=== PATIENT | male | born 1995 | race Caucasian/White ===

== ENCOUNTER 2017-10-08 18:09 | Inpatient (IN) | payer OTHER ==
[2017-10-08 18:37] VITALS: BMI 29.0
--- NOTE | 2017-10-08 20:21 | HP ---
CIWA Score - CIWA Score Nausea/Vomitin Muscle Tremors: 4-Moderate,w/Arms Extend Anxiety: 4-Mod. Anxious/Guarded Agitation: 1-Slight > Activity Paroxysmal Sweats: 3 Orientation: 0-Oriented Tacttile Disturbances: 0-None Auditory Disturbances: 0-None Visual Disturbances: 0-None Headache: 3-Moderate CIWA-Ar Total Score: 18 Admission ROS BHS - HPI Chief Complaint: Alcohol withdrawal symptoms Allergies/Adverse Reactions: Allergies Allergy/AdvReac Type Severity Reaction Status Date / Time No Known Allergies Allergy Verified 10/08/17 18:59 History of Present Illness: 22 years old male with a long history of alcohol dependence is admitted to detox. Patient reports that this is his first admission to detox and to [facility]. Patient reports past medical history of low back pain and depression. He reports suicide attempt in 2012 and denies suicidal ideation at this time. Exam Limitations: No Limitations - Ebola screening Have you traveled outside of the country in the last 21 days: No Have you had contact with anyone from an Ebola affected area: No Have you been sick,other than usual withdrawal symptoms: No Do you have a fever: No - Review of Systems Constitutional: Chills, Loss of Appetite, Malaise, Night Sweats, Changes in sleep EENT: reports: Sinus Pressure Respiratory: reports: No Symptoms reported Cardiac: reports: No Symptoms Reported GI: reports: Nausea, Poor Appetite, Poor Fluid Intake, Vomiting, Abdominal cramping : reports: No Symptoms Reported Musculoskeletal: reports: Back Pain, Muscle Pain, Muscle Weakness Integumentary: reports: Dryness, Flushing Neuro: reports: Tingling, Tremors Endocrine: reports: Increased Urine Hematology: reports: No Symptoms Reported Psychiatric: reports: Mood/Affect Appropiate, Orientated x3, Anxious Other Systems: Reviewed and Negative Patient History - Patient Medical History Hx Anemia: No Hx Asthma: No Hx Chronic Obstructive Pulmonary Disease (COPD): No Hx Cancer: No Hx Cardiac Disorders: No Hx Congestive Heart Failure: No Hx Hypertension: No Hx Hypercholesterolemia: No Hx Pacemaker: No HX Cerebrovascular Accident: No Hx Seizures: No Hx Diabetes: No Hx Gastrointestinal Disorders: No Hx Liver Disease: No Hx Genitourinary Disorders: No Hx Sexually Transmitted Disorders: No Hx Renal Disease (ESRD): No Hx Thyroid Disease: No Hx Human Immunodeficiency Virus (HIV): No Hx Hepatitis C: No Hx Depression: Yes Hx Suicide Attempt: No Hx Bipolar Disorder: No Hx Schizophrenia: No Other Medical History: LOW BACK PAIN - Patient Surgical History Past Surgical History: No Hx Neurologic Surgery: No Hx Cataract Extraction: No Hx Cardiac Surgery: No Hx Lung Surgery: No Hx Abdominal Surgery: No Hx Appendectomy: No Hx Cholecystectomy: No Hx Genitourinary Surgery: No Hx Section: No Hx Orthopedic Surgery: No Anesthesia Reaction: No - PPD History Previous Implant?: No Implanted On Prior [facility] Admission?: No PPD to be Administered?: Yes - Reproductive History Patient is a Female of Child Bearing Age (11 -55 yrs old): No (MALE) - Smoking Cessation Smoking history: Never smoked Have you smoked in the past 12 months: No Hx Chewing Tobacco Use: No Initiated information on smoking cessation: No - Substance & Tx. History Hx Alcohol Use: Yes Substance Use Type: None, Alcohol, Cocaine, Marijuana - Substances Abused Alcohol Route: Oral Frequency: 3-6 times per week Amount used: TEQUILLA- I LITER and BEER - 24 X 12 oz. Age of first use: 13 Date of Last Use: 10/07/17 Cocaine Route: Inhalation Frequency: 3-6 times per week Amount used: 3 GRAMS Age of first use: 14 Date of Last Use: 10/07/17 Marijuana/Hashish Route: Smoking Frequency: Daily Amount used: 28 GRAM WEEKLY Age of first use: 17 Date of Last Use: 10/04/17 Family Disease History - Family Disease History Family History: Denies Admission Physical Exam BHS - Vital Signs Vital Signs: Vital Signs - 24 hr 10/08/17 18:34 Temperature 97.7 F Pulse Rate 103 H Respiratory 18 Rate Blood Pressure 133/83 - Physical General Appearance: Yes: Moderate Distress, Tremorous, Irritable, Sweating, Anxious HEENTM: Yes: EOMI, Hearing grossly Normal, Normal ENT Inspection, Normocephalic , Normal Voice, IZA Respiratory: Yes: Lungs Clear, Normal Breath Sounds, No Respiratory Distress Neck: Yes: Supple Breast: Yes: Breast Exam Deferred Cardiology: Yes: Tachycardia Abdominal: Yes: Normal Bowel Sounds, Soft Genitourinary: Yes: Within Normal Limits Musculoskeletal: Yes: Back pain, Muscle Pain, Muscle weakness Extremities: Yes: Tremors Neurological: Yes: Fully Oriented, Alert, Normal Mood/Affect Integumentary: Yes: Within Normal Limits, Warm Lymphatic: Yes: Within Normal Limits - Diagnostic (1) Alcohol dependence with uncomplicated withdrawal Current Visit: Yes Status: Chronic (2) Low back pain Current Visit: Yes Status: Chronic (3) Depression Current Visit: Yes Status: Chronic Qualifiers: Major depression episode severity: unspecified (4) Cannabis dependence, uncomplicated Current Visit: Yes Status: Chronic (5) Cocaine dependence, uncomplicated Current Visit: Yes Status: Chronic Cleared for Admission [facility] - Detox or Rehab [facility] Level of Care: Medically Managed Detox Regimen/Protocol: Librium [facility] Breath Alcohol Content Breath Alcohol Content: 0 Urine Drug Screen - Results Drug Screen Negative: No Urine Drug Screen Results: THC-Marijuana, MARA-Cocaine
[2017-10-08] MEDS ORDERED: chlordiazePOXIDE HCL 25 MG CAPSULE PO PRN (20:41)
[2017-10-08] MEDS ORDERED: LOPERAMIDE HCL 2 MG CAPSULE PO PRN (20:41)
[2017-10-08] MEDS ORDERED: P-EPHED 60MG/TRIPROLIDI 2.5MG TABLET PO PRN (20:41)
[2017-10-08] MEDS ORDERED: MAGNESIUM HYDROX 2400MG/30ML ORAL SUSPENSION 30 ML CUP PO PRN (20:41)
[2017-10-08] MEDS ORDERED: MENTHOL/PHENOL 1 EACH UD MM PRN (20:41)
[2017-10-08] MEDS ORDERED: MAGNESIUM CITRATE 300 ML BOTTLE PO PRN (20:41)
[2017-10-08] MEDS ORDERED: MAG HYDROX/AL HYDROX/SIMETH 30 ML UNIT-DOSE CUP PO PRN (20:41)
[2017-10-08] MEDS ORDERED: guaiFENesin/D-METHORPHAN HB 10 ML UNIT-DOSE CUPS PO PRN (20:41)
[2017-10-08] MEDS: chlordiazePOXIDE HCL 25 MG CAPSULE PO SCH (22:23)
[2017-10-08] MEDS: THIAMINE HCL 100 MG TABLET (FP) PO SCH (22:23)
[2017-10-09] MEDS: chlordiazePOXIDE HCL 25 MG CAPSULE PO SCH ×4 (05:47→22:46)
--- NOTE | 2017-10-09 07:27 | CONSULT ---
[facility] Psychiatric Consult - Data Substance Abuse History: - Smoking Cessation. Smoking history: Never smoked. Have you smoked in the past 12 months: No. Hx Chewing Tobacco Use: No. Initiated information on smoking cessation: No. - Substance & Tx. History. Hx Alcohol Use: Yes. Substance Use Type: None, Alcohol, Cocaine, Marijuana. - Substances Abused. Alcohol. Route: Oral. Frequency: 3-6 times per week. Amount used: TEQUILLA- I LITER and BEER - 24 X 12 oz. Age of first use: 13. Date of Last Use: 10/07/17. Cocaine. Route: Inhalation. Frequency: 3-6 times per week. Amount used: 3 GRAMS. Age of first use: 14. Date of Last Use : 10/07/17. Marijuana/Hashish. Route: Smoking. Frequency: Daily. Amount used: 28 GRAM WEEKLY. Age of first use: 17. Date of Last Use: 10/04/17
--- NOTE | 2017-10-09 08:48 | CONSULT ---
[facility] Psychiatric Consult - Data Date of interview: 10/09/17 Admission source: [facility] Identifying data: This is 22 years old male,, living with family, employed, with no psychiatric hospitalization history, with a long history of alcohol dependence, Cocaine and Cannabis abuse as well, is admitted to detox. Patient reports that this is his first admission to detox and to [facility]. Substance Abuse History: - Smoking Cessation. Smoking history: Never smoked. Have you smoked in the past 12 months: No. Hx Chewing Tobacco Use: No. Initiated information on smoking cessation: No. - Substance & Tx. History. Hx Alcohol Use: Yes. Substance Use Type: None, Alcohol, Cocaine, Marijuana. - Substances Abused. Alcohol. Route: Oral. Frequency: 3-6 times per week. Amount used: TEQUILLA- I LITER and BEER - 24 X 12 oz. Age of first use: 13. Date of Last Use: 10/07/17. Cocaine. Route: Inhalation. Frequency: 3-6 times per week. Amount used: 3 GRAMS. Age of first use: 14. Date of Last Use : 10/07/17. Marijuana/Hashish. Route: Smoking. Frequency: Daily. Amount used: 28 GRAM WEEKLY. Age of first use: 17. Date of Last Use: 10/04/17 Medical History: Patient reports past medical history of low back pain. Psychiatric History: Patient reports history of depression, suicide attempt in 2012 and denies suicidal ideation since then and at this time. Reports no psychiatric medications taking prior to admission. Physical/Sexual Abuse/Trauma History: Denies Additional Comment: Observation. Detox Unit Care Protocol Mental Status Exam - Mental Status Exam Alert and Oriented to: Person Cognitive Function: Fair Patient Appearance: Unkempt Mood: Sad Affect: Flat Patient Behavior: Sedated Speech Pattern: Delayed Voice Loudness: Mildly Soft/Quiet Thought Process: Goal Oriented Thought Disorder: Being Controlled Hallucinations: Denies Suicidal Ideation: Denies Homicidal Ideation: Denies Insight/Judgement: Fair Sleep: Difficulty falling asleep Appetite: Fair Muscle strength/Tone: Mild Hypotonicity Gait/Station: Deferred Additional Comments: Observation. Detox Unit Care Protocol Psychiatric Findings - Problem List ([place] 1, 2,3) (1) Drug-induced mood disorder Status: Suspected (2) Alcohol dependence with uncomplicated withdrawal Status: Acute (3) Cannabis dependence, uncomplicated Status: Chronic (4) Cocaine dependence, uncomplicated Status: Chronic - Initial Treatment Plan Initial Treatment Plan: Observation. Detox Unit Care Protocol
[2017-10-09 10:13] LABS: HEMATOCRIT 43.6 % (35.4-49); HEMOGLOBIN 14.1 GM/dL (11.7-16.9); MCH 27.2 pg (25.7-33.7); MCHC 32.4 g/dl (32.0-35.9); MEAN CELL VOLUME 83.9 fl (80-96); MEAN PLT VOLUME 8.3 fl (7.5-11.1); PLATELET COUNT 219 K/MM3 (134-434); RDW 14.2 % (11.9-15.9); WHITE BLOOD COUNT 5.9 K/mm3 (4.0-10.0)
[2017-10-09 10:20] LABS: ALK PHOS 58 U/L (45-117); ANION GAP 8 (8-16); BILIRUBIN,TOTAL 0.4 mg/dL (0.2-1.0); BLOOD UREA NITROGEN 14 mg/dL (7-18); CALCIUM 8.1 mg/dL (8.5-10.1); CHLORIDE 106 mmol/L (98-107); CO2 27 mmol/L (21-32); CREATININE 0.9 mg/dL (0.7-1.3); GLUCOSE,RANDOM 87 mg/dL (74-106); POTASSIUM 4.3 mmol/L (3.5-5.1); SGOT/AST 12 U/L (15-37); SGPT/ALT 18 U/L (12-78); SODIUM 141 mmol/L (136-145)
[2017-10-09] MEDS: PRENATAL VITAMINS W/ FOLIC ACID TABLET (FP) PO SCH (10:33)
[2017-10-09] MEDS: IBUPROFEN 400 MG TABLET (FP) PO PRN (10:34)
--- NOTE | 2017-10-09 10:58 | PN ---
S CIWA - CIWA Score Nausea/Vomitin Muscle Tremors: 3 Anxiety: 3 Agitation: 3 Paroxysmal Sweats: 1-Minimal Palms Moist Orientation: 0-Oriented Tacttile Disturbances: 1-Very Mild Itch/Numbness Auditory Disturbances: 1-Very Mild Visual Disturbances: 0-None Headache: 2-Mild CIWA-Ar Total Score: 17 BHS Progress Note (SOAP) Subjective: ALERT,IRRITABLE,ANXIOUS,INTERRUPTED SLEEP,TREMOR Objective: 10/09/17 10:56 Vital Signs Temperature 97.3 F L 10/09/17 10:08 Pulse Rate 83 10/09/17 10:08 Respiratory Rate 16 10/09/17 10:08 Blood Pressure 124/77 10/09/17 10:08 O2 Sat by Pulse Oximetry (%) EKG NSR,NORMAL ECG Laboratory Last Values WBC 5.9 K/mm3 (4.0-10.0) 10/09/17 07:30 RBC 5.20 M/mm3 (4.00-5.60) 10/09/17 07:30 Hgb 14.1 GM/dL (11.7-16.9) 10/09/17 07:30 Hct 43.6 % (35.4-49) 10/09/17 07:30 MCV 83.9 fl (80-96) 10/09/17 07:30 MCH 27.2 pg (25.7-33.7) 10/09/17 07:30 MCHC 32.4 g/dl (32.0-35.9) 10/09/17 07:30 RDW 14.2 % (11.9-15.9) 10/09/17 07:30 Plt Count 219 K/MM3 (134-434) 10/09/17 07:30 MPV 8.3 fl (7.5-11.1) 10/09/17 07:30 Sodium 141 mmol/L (136-145) 10/09/17 07:30 Potassium 4.3 mmol/L (3.5-5.1) 10/09/17 07:30 Chloride 106 mmol/L (98-107) 10/09/17 07:30 Carbon Dioxide 27 mmol/L (21-32) 10/09/17 07:30 Anion Gap 8 (8-16) 10/09/17 07:30 BUN 14 mg/dL (7-18) 10/09/17 07:30 Creatinine 0.9 mg/dL (0.7-1.3) 10/09/17 07:30 Creat Clearance w eGFR > 60 (>60) 10/09/17 07:30 Random Glucose 87 mg/dL (74-106) 10/09/17 07:30 Calcium 8.1 mg/dL (8.5-10.1) L 10/09/17 07:30 Total Bilirubin 0.4 mg/dL (0.2-1.0) 10/09/17 07:30 AST 12 U/L (15-37) L 10/09/17 07:30 ALT 18 U/L (12-78) 10/09/17 07:30 Alkaline Phosphatase 58 U/L (45-117) 10/09/17 07:30 Total Protein 7.0 g/dl (6.4-8.2) 10/09/17 07:30 Albumin 4.0 g/dl (3.4-5.0) 10/09/17 07:30 10/09/17 10:57 LABS PENDING Assessment: 10/09/17 10:57 WITHDRAWAL SYMPTOM Plan: CONTINUE DETOX
[2017-10-09] MEDS ORDERED: PNEUMOCOCCAL 23 VACCINE 0.5 ML VIAL IM ONE (12:00)
[2017-10-09] MEDS ORDERED: PNEUMOC 13-VAL CONJ-DIP CRM/PF 0.5 ML DISP.SYRIN IM ONE (12:00)
[2017-10-09] MEDS ORDERED: FLU VACCINE QUAD 60 MCG/0.5 ML (MDV 17-18) IM ONE (12:00)
--- NOTE | 2017-10-09 12:14 | EKG ---
Test Reason : Blood Pressure : / mmHG Vent. Rate : 067 BPM Atrial Rate : 067 BPM P-R Int : 130 ms QRS Dur : 096 ms QT Int : 380 ms P-R-T Axes : 044 067 025 degrees QTc Int : 401 ms NORMAL SINUS RHYTHM NORMAL ECG NO PREVIOUS ECGS AVAILABLE Confirmed by MAXI CAMPOVERDE MD ([id number]) on 10/09/2017 12:14:07 PM Referred By: Confirmed By:MAXI CAMPOVERDE MD
[2017-10-09 15:29] LABS: URINE APPEARANCE CLEAR; URINE BILIRUBIN NEGATIVE (NEGATIVE); URINE BLOOD NEGATIVE (NEGATIVE); URINE COLOR LTYELLOW; URINE GLUCOSE (UA) NEGATIVE (NEGATIVE); URINE KETONE NEGATIVE (NEGATIVE); URINE LEUK ESTERASE NEGATIVE (NEGATIVE); URINE NITRITE NEGATIVE (NEGATIVE); URINE PROTEIN NEGATIVE (NEGATIVE); URINE UROBILINOGEN NEGATIVE mg/dL (0.2-1.0)
[2017-10-09] MEDS: THIAMINE HCL 100 MG TABLET (FP) PO SCH (22:46)
[2017-10-10] MEDS: chlordiazePOXIDE HCL 25 MG CAPSULE PO SCH ×3 (05:23→17:55)
[2017-10-10] MEDS: ACETAMINOPHEN 325 MG TABLET (FP) PO PRN ×2 (05:23→11:25)
[2017-10-10] MEDS: PRENATAL VITAMINS W/ FOLIC ACID TABLET (FP) PO SCH (10:33)
[2017-10-10] MEDS: IBUPROFEN 400 MG TABLET (FP) PO PRN ×2 (10:35→19:26)
--- NOTE | 2017-10-10 11:15 | PN ---
S CIWA - CIWA Score Nausea/Vomitin Muscle Tremors: 3 Anxiety: 3 Agitation: 2 Paroxysmal Sweats: 1-Minimal Palms Moist Orientation: 0-Oriented Tacttile Disturbances: 1-Very Mild Itch/Numbness Auditory Disturbances: 1-Very Mild Visual Disturbances: 0-None Headache: 2-Mild CIWA-Ar Total Score: 16 BHS Progress Note (SOAP) Subjective: ALERT,IRRITABLE,ANXIOUS,INTERRUPTED SLEEP,TREMOR Objective: 10/10/17 11:14 Vital Signs Temperature 99.1 F 10/10/17 06:24 Pulse Rate 110 H 10/10/17 06:24 Respiratory Rate 20 10/10/17 06:24 Blood Pressure 113/50 10/10/17 06:24 O2 Sat by Pulse Oximetry (%) Laboratory Last Values WBC 5.9 K/mm3 (4.0-10.0) 10/09/17 07:30 RBC 5.20 M/mm3 (4.00-5.60) 10/09/17 07:30 Hgb 14.1 GM/dL (11.7-16.9) 10/09/17 07:30 Hct 43.6 % (35.4-49) 10/09/17 07:30 MCV 83.9 fl (80-96) 10/09/17 07:30 MCH 27.2 pg (25.7-33.7) 10/09/17 07:30 MCHC 32.4 g/dl (32.0-35.9) 10/09/17 07:30 RDW 14.2 % (11.9-15.9) 10/09/17 07:30 Plt Count 219 K/MM3 (134-434) 10/09/17 07:30 MPV 8.3 fl (7.5-11.1) 10/09/17 07:30 Sodium 141 mmol/L (136-145) 10/09/17 07:30 Potassium 4.3 mmol/L (3.5-5.1) 10/09/17 07:30 Chloride 106 mmol/L (98-107) 10/09/17 07:30 Carbon Dioxide 27 mmol/L (21-32) 10/09/17 07:30 Anion Gap 8 (8-16) 10/09/17 07:30 BUN 14 mg/dL (7-18) 10/09/17 07:30 Creatinine 0.9 mg/dL (0.7-1.3) 10/09/17 07:30 Creat Clearance w eGFR > 60 (>60) 10/09/17 07:30 Random Glucose 87 mg/dL (74-106) 10/09/17 07:30 Calcium 8.1 mg/dL (8.5-10.1) L 10/09/17 07:30 Total Bilirubin 0.4 mg/dL (0.2-1.0) 10/09/17 07:30 AST 12 U/L (15-37) L 10/09/17 07:30 ALT 18 U/L (12-78) 10/09/17 07:30 Alkaline Phosphatase 58 U/L (45-117) 10/09/17 07:30 Total Protein 7.0 g/dl (6.4-8.2) 10/09/17 07:30 Albumin 4.0 g/dl (3.4-5.0) 10/09/17 07:30 Urine Color Ltyellow 10/09/17 11:00 Urine Appearance Clear 10/09/17 11:00 Urine pH 6.0 (5.0-8.0) 10/09/17 11:00 Ur Specific [place] 1.021 (1.001-1.035) 10/09/17 11:00 Urine Protein Negative (NEGATIVE) 10/09/17 11:00 Urine Glucose (UA) Negative (NEGATIVE) 10/09/17 11:00 Urine Ketones Negative (NEGATIVE) 10/09/17 11:00 Urine Blood Negative (NEGATIVE) 10/09/17 11:00 Urine Nitrite Negative (NEGATIVE) 10/09/17 11:00 Urine Bilirubin Negative (NEGATIVE) 10/09/17 11:00 Urine Urobilinogen Negative mg/dL (0.2-1.0) 10/09/17 11:00 Ur Leukocyte Esterase Negative (NEGATIVE) 10/09/17 11:00 RPR Titer Nonreactive (NONREACTIVE) 10/09/17 07:30 Hepatitis C Antibody <0.1 s/co ratio (0.0-0.9) 10/08/17 07:30 HIV 1&2 Antibody Screen Negative 10/09/17 07:30 HIV P24 Antigen Negative 10/09/17 07:30 Assessment: 10/10/17 11:14 WITHDRAWAL SYMPTOM Plan: CONTINUE DETOX
[2017-10-10] MEDS: THIAMINE HCL 100 MG TABLET (FP) PO SCH (22:18)
[2017-10-10] MEDS: chlordiazePOXIDE 5 MG CAPSULE PO SCH (22:18)
[2017-10-11] MEDS: chlordiazePOXIDE 5 MG CAPSULE PO SCH ×3 (05:23→17:46)
[2017-10-11] MEDS: IBUPROFEN 400 MG TABLET (FP) PO PRN (05:24)
[2017-10-11] MEDS: PRENATAL VITAMINS W/ FOLIC ACID TABLET (FP) PO SCH (10:16)
--- NOTE | 2017-10-11 14:40 | PN ---
BHS Progress Note (SOAP) Subjective: shakes diarrhea nausea Objective: 10/11/17 14:40 ambulating steadily on unit A& O X 3 Vital Signs Temperature 98.2 F 10/11/17 10:00 Pulse Rate 85 10/11/17 10:00 Respiratory Rate 18 10/11/17 10:00 Blood Pressure 108/61 10/11/17 10:00 O2 Sat by Pulse Oximetry (%) Assessment: 10/11/17 14:40 withdrawal sx Plan: continue detox
[2017-10-11] MEDS: ACETAMINOPHEN 325 MG TABLET (FP) PO PRN (17:56)
[2017-10-11] MEDS: THIAMINE HCL 100 MG TABLET (FP) PO SCH (22:20)
[2017-10-11] MEDS: chlordiazePOXIDE HCL 10 MG CAPSULE PO SCH (22:20)
[2017-10-12] MEDS: chlordiazePOXIDE HCL 10 MG CAPSULE PO SCH (05:34)
[2017-10-12 06:35] VITALS: BP 103/57; PULSE 83; TEMP 98.8
--- NOTE | 2017-10-12 09:16 | DS ---
[facility] Detox Discharge Summary Admission Date: 10/08/17 Discharge Date: 10/12/17 - History Present History: Alcohol Dependence Additional Comments: patient refuses to go to the x ray for positive ppd - Physical Exam Results Vital Signs: Vital Signs Temperature 98.8 F 10/12/17 06:00 Pulse Rate 83 10/12/17 06:00 Respiratory Rate 18 10/12/17 06:00 Blood Pressure 103/57 10/12/17 06:00 O2 Sat by Pulse Oximetry (%) Pertinent Admission Physical Exam Findings: withdrawal sx Vital Signs Temperature 98.8 F 10/12/17 06:00 Pulse Rate 83 10/12/17 06:00 Respiratory Rate 18 10/12/17 06:00 Blood Pressure 103/57 10/12/17 06:00 O2 Sat by Pulse Oximetry (%) Vital Signs Laboratory Last Values WBC 5.9 K/mm3 (4.0-10.0) 10/09/17 07:30 RBC 5.20 M/mm3 (4.00-5.60) 10/09/17 07:30 Hgb 14.1 GM/dL (11.7-16.9) 10/09/17 07:30 Hct 43.6 % (35.4-49) 10/09/17 07:30 MCV 83.9 fl (80-96) 10/09/17 07:30 MCH 27.2 pg (25.7-33.7) 10/09/17 07:30 MCHC 32.4 g/dl (32.0-35.9) 10/09/17 07:30 RDW 14.2 % (11.9-15.9) 10/09/17 07:30 Plt Count 219 K/MM3 (134-434) 10/09/17 07:30 MPV 8.3 fl (7.5-11.1) 10/09/17 07:30 Sodium 141 mmol/L (136-145) 10/09/17 07:30 Potassium 4.3 mmol/L (3.5-5.1) 10/09/17 07:30 Chloride 106 mmol/L (98-107) 10/09/17 07:30 Carbon Dioxide 27 mmol/L (21-32) 10/09/17 07:30 Anion Gap 8 (8-16) 10/09/17 07:30 BUN 14 mg/dL (7-18) 10/09/17 07:30 Creatinine 0.9 mg/dL (0.7-1.3) 10/09/17 07:30 Creat Clearance w eGFR > 60 (>60) 10/09/17 07:30 Random Glucose 87 mg/dL (74-106) 10/09/17 07:30 Calcium 8.1 mg/dL (8.5-10.1) L 10/09/17 07:30 Total Bilirubin 0.4 mg/dL (0.2-1.0) 10/09/17 07:30 AST 12 U/L (15-37) L 10/09/17 07:30 ALT 18 U/L (12-78) 10/09/17 07:30 Alkaline Phosphatase 58 U/L (45-117) 10/09/17 07:30 Total Protein 7.0 g/dl (6.4-8.2) 10/09/17 07:30 Albumin 4.0 g/dl (3.4-5.0) 10/09/17 07:30 Urine Color Ltyellow 10/09/17 11:00 Urine Appearance Clear 10/09/17 11:00 Urine pH 6.0 (5.0-8.0) 10/09/17 11:00 Ur Specific [place] 1.021 (1.001-1.035) 10/09/17 11:00 Urine Protein Negative (NEGATIVE) 10/09/17 11:00 Urine Glucose (UA) Negative (NEGATIVE) 10/09/17 11:00 Urine Ketones Negative (NEGATIVE) 10/09/17 11:00 Urine Blood Negative (NEGATIVE) 10/09/17 11:00 Urine Nitrite Negative (NEGATIVE) 10/09/17 11:00 Urine Bilirubin Negative (NEGATIVE) 10/09/17 11:00 Urine Urobilinogen Negative mg/dL (0.2-1.0) 10/09/17 11:00 Ur Leukocyte Esterase Negative (NEGATIVE) 10/09/17 11:00 RPR Titer Nonreactive (NONREACTIVE) 10/09/17 07:30 Hepatitis C Antibody <0.1 s/co ratio (0.0-0.9) 10/08/17 07:30 HIV 1&2 Antibody Screen Negative 10/09/17 07:30 HIV P24 Antigen Negative 10/09/17 07:30 lab noted - Treatment Hospital Course: Detox Protocol Followed, Detoxed Safely, Responded well, Discharged Condition Good, Rehab Referral Accepted Patient has Accepted a Rehab Referral to: as per counselor arranged - Medication Discharge Medications: Ambulatory Orders NK [No Known Home Medication] 10/08/17 - Diagnosis (1) Alcohol dependence with uncomplicated withdrawal Current Visit: Yes Status: Acute - AMA Did Patient Leave Against Medical Advice: No
== END 2017-10-12 09:11 | disposition home or self-care (01) | DRG 774 ==
LOC: YASAS 18:09 → Y6N 19:37
PROVIDERS: ADMIT Internal Medicine; ATTEND Internal Medicine
PROC: HZ2ZZZZ Detoxification Services for Substance Abuse Treatment (ICD-10-PCS; principal; 2017-10-08)
DX: F10.230 Alcohol dependence with withdrawal, uncomplicated (principal); F14.20 Cocaine dependence, uncomplicated; F12.20 Cannabis dependence, uncomplicated; F19.24 Other psychoactive substance dependence with psychoactive substance-induced mood disorder; F32.9 Major depressive disorder, single episode, unspecified; M54.5 Low back pain; G89.29 Other chronic pain; R00.0 Tachycardia, unspecified
CPT/HCPCS: 36415; 80053; 81003; 85027; 86593; 86803; 87389; 90688; 90732; 93005; 93010; G0009